=== PATIENT | male | born 1970 | race Caucasian/White ===

== ENCOUNTER → 2017-04-07 | Outpatient (CLI) | payer OTHER ==
--- NOTE | 2017-04-08 09:28 | REP ---
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 History of TM perforation, chronic otitis media. Question cholesteatoma. Technique: Helical scanning is acquired. 1 mm axial high resolution images are generated at bone targeting technique. Coronal multiplanar reformation images are generated. CT findings: Mastoid air cells are fully aerated. There is no CT evidence of mastoiditis on either side. The other visualized paranasal sinuses are clear as well. Internal auditory canals are normal and symmetric. Otic capsule appears intact bilaterally. Vestibular and cochlear apparatus are unremarkable. The middle ear is fully aerated on both sides. No scutal or other bony erosive change is seen. There is no soft tissue density in the middle ear cavity on either side to suggest cholesteatoma. No abnormal calcifications are seen on the tympanic membrane. However, there is some bony hypertrophy of the medial aspect of the external auditory canal hogue on both sides with mild narrowing. No abnormal soft tissue density is seen. The external auditory canals remain patent. On soft-tissue window settings, there is a small subcentimeter mucous retention cyst in the lateral wall of the left maxillary sinus. Impression: 1. No CT evidence to suggest cholesteatoma. 2. No abnormal middle ear or tympanic membrane calcification seen. 3. 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 The EACs remain patent however. Signed by Davide Chong MD 04/08/2017 12:38 P
== END ==
LOC: M RAD 18:12
PROVIDERS: ATTEND Otolaryngology
DX: H74.03 Tympanosclerosis, bilateral (principal)